=== PATIENT | female | born 1990 | race Caucasian/White ===

== ENCOUNTER 2022-04-14 15:57 | Emergency (ER) | payer OTHER ==
[2022-04-14] MEDS ORDERED: PREDNISONE 20MG20 MG PO (20:06)
== END 2022-04-14 20:36 | disposition home or self-care (01) ==
LOC: FER 15:57
DX: U07.1 COVID-19 (principal); I10 Essential (primary) hypertension; E11.9 Type 2 diabetes mellitus without complications; Z88.8 Allergy status to other drugs, medicaments and biological substances; Z88.1 Allergy status to other antibiotic agents
CPT/HCPCS: 96372; 99284; J1100; J1885